=== PATIENT | female | born 1995 | race Caucasian/White ===

== ENCOUNTER 2016-05-01 08:41 | Day surgery (SDC) | payer OTHER ==
[~2016-05-01] VITALS: Ht 168.9 cm; Wt 69.9 kg
[~2016-05-01 08:41] MED LIST: BUPIVAC MPF-EPI 0.5%-1:200000 30 ML VIAL. ONE; CEFAZOLIN 2GM PREMIX 50 ML IV PRN; IOHEXOL 300 MG/ML 50 ML VIAL. ONE; SURGICEL HEMOSTAT 4X8 EACH. ONE
[2016-05-01] MEDS ORDERED: SEVOFLURANE 61 TO 120 MINUTES. IH ONE (08:45)
[2016-05-01] MEDS ORDERED: NEOSTIGMINE METHYLSULFATE 5 MG/5 ML SYRINGE. ONE (08:45)
[2016-05-01] MEDS ORDERED: FENTANYL PF 100 MCG/2 ML VIAL. ONE ×2 (08:45→10:27)
[2016-05-01] MEDS ORDERED: MIDAZOLAM HCL 2 MG/2 ML VIAL. ONE (08:45)
[2016-05-01] MEDS ORDERED: PROPOFOL 20 ML IV ONE (08:45)
[2016-05-01] MEDS ORDERED: DEXAMETHASONE SOD PHOS 20 MG/5 ML VIAL. ONE (08:45)
[2016-05-01] MEDS ORDERED: ROCURONIUM 50 MG/5 ML VIAL. ONE (08:45)
[2016-05-01] MEDS ORDERED: GLYCOPYRROLATE 1 MG/5 ML VIAL. ONE (08:45)
[2016-05-01] MEDS ORDERED: LIDOCAINE 2% 100 MG/5 ML DISP.SYRIN. ONE (08:46)
[2016-05-01] MEDS ORDERED: ONDANSETRON PF 4 MG/2 ML VIAL. ONE (08:46)
[2016-05-01] MEDS ORDERED: IV RINGERS,LACTATED 1000ML 1,000 ML IV SCH ×2 (09:30→10:59)
[2016-05-01] MEDS ORDERED: KETOROLAC 30 MG/ML SYRINGE FOR OR. INJ ONE (10:17)
--- NOTE | 2016-05-01 10:47 | RAD ---
Intraoperative cholangiogram, 05/01/2016: History: Cholecystectomy 4 spot films from surgery are presented for review. Contrast has been injected into the cystic duct remnant. 0.5 minutes of fluoroscopy time was utilized. Overlying surgical instruments obscure portions of the cystic duct and its insertion on the common bile duct. The mid and distal common bile duct are of normal caliber with no filling defects seen to suggest a retained calculus. There is good flow of contrast into the duodenum at the ampulla. There is reflux of contrast into a portion of the pancreatic duct. The incompletely opacified intrahepatic ducts are unremarkable. IMPRESSION: No significant abnormality is detected.
[2016-05-01] MEDS ORDERED: FENTANYL PF 100 MCG/2 ML VIAL. IV PRN (11:00)
[2016-05-01] MEDS ORDERED: ONDANSETRON PF 4 MG/2 ML VIAL. IV PRN (11:00)
[2016-05-01] MEDS ORDERED: HYDROMORPHONE 2 MG/ML VIAL. IV PRN (11:00)
[2016-05-01] MEDS ORDERED: LIDOCAINE 1% 1 ML SYRINGE. ID PRN (11:00)
[2016-05-01] MEDS ORDERED: MORPHINE SULFATE 2 MG/ML DISP.SYRIN. IV PRN (11:00)
[2016-05-01] MEDS ORDERED: PROCHLORPERAZINE 10 MG/2 ML VIAL. IV PRN (11:00)
[2016-05-01] MEDS: FENTANYL PF 100 MCG/2 ML VIAL. IV PRN ×2 (11:15→11:16)
[2016-05-01] MEDS ORDERED: OXYC-323 PO (11:18)
[2016-05-01] MEDS ORDERED: ONDA4TAB7 PO (11:18)
--- NOTE | 2016-05-01 11:19 | PDOC ---
BRIEF OPERATIVE NOTE Pre-Op Diagnosis cholelithiasis lap blanche, ioc k paul márquez ebl 20 ivf 600 kofi well to rr, stable. WADE STROUD MD May 01, 2016 11:19
[2016-05-01] MEDS ORDERED: OXYCODONE/APAP 5/325 TABLET. PO ONE (11:45)
[2016-05-01 11:53] LABS: NEG OBC UR NEG; POS OBC UR POS
[2016-05-01 12:35] VITALS: BP 119/76
--- NOTE | 2016-05-02 14:38 | PATHOLOGY ---
PATHOLOGY REPORT * * * * * * * * FINAL DIAGNOSIS: Gallbladder, laparoscopic cholecystectomy: - Cholelithiasis. - Cholesterolosis, focal. - Chronic cholecystitis. COMMENT: There is no evidence of malignancy. (JPM:; d/t: 05/02/16) REPORT ELECTRONICALLY SIGNED BY: Dashawn Tao M.D. DATE/TIME: 05/02/2016 14:38 * * * * * * * * GROSS PATHOLOGY: Received in formalin labeled "Sara Hoffmann, gallbladder and contents," is a 9.5 x 3.1 x 3.0 cm, intact gallbladder with pink-bowie purple serosal surfaces. Opening the gallbladder reveals a velvety, pink-harris mucosa and an average wall thickness of 0.1 cm. Calculi are present displaying a yellow and nodular appearance, and no masses are noted grossly. Station [employer]ice sections from the body and fundus are submitted along with the proximal margin in cassette A1. (CAA; 05/01/2016) INITIAL CPT CODE(S): A; 45696 Professional services performed by [email or web address] [address] Technical services performed by [email or web address] at [address] [place] [address]. SPECIMEN(S) RECEIVED: A.Gallbladder and contents CLINICAL HISTORY: Cholelithiasis PATIENT: SARA HOFFMANN /AGE: 1012/08/1995 (Age: 20) PATIENT #: [id number] ALT CASE #: SPECIMEN COLLECTION DATE: 05/01/2016 SPECIMEN RECEIVED DATE: 05/01/2016 [facility] - [id number] [place] [address] - PHONE: [phone] * * * END OF REPORT * * *
--- NOTE | 2016-05-02 20:25 | OP ---
DATE OF SURGERY: 05/01/2016 PREOPERATIVE DIAGNOSIS: Symptomatic cholelithiasis. POSTOPERATIVE DIAGNOSIS: Symptomatic cholelithiasis. PROCEDURE: Laparoscopic cholecystectomy with intraoperative cholangiogram. SURGEON: Wade Stroud M.D. ANESTHESIA: General. ESTIMATED BLOOD LOSS: 20 mL. IV FLUIDS: 600 mL. INDICATIONS: The patient is a 20-year-old female with symptomatic cholelithiasis. FINDINGS: Intraoperative cholangiogram is normal. DESCRIPTION OF PROCEDURE: After informed consent was obtained, the patient was taken to the operating room and placed in supine position. After adequate induction of general anesthesia, she was prepped and draped in usual sterile fashion. An umbilical skin incision was made with a scalpel. Subcutaneous tissue was spread with a hemostat. [facility] was used to grab the fascia and lift it anteriorly. Veress was used to gain access to the peritoneal cavity. Low opening pressures confirmed intraperitoneal placement of Veress. Pneumoperitoneum to 15 mmHg was established followed by placement of a 12 mm port. A 5 mm 30 degree lens was inserted, which revealed good port placement. No evidence of entry trauma. She was placed head up, rotated towards her left. Two additional ports were placed. There were 5 mm ports placed under direct vision after injecting the sites with local anesthetic, one was an epigastric and one was a 5 mm right lateral port. In addition, a small Alligator grasper was inserted through a separate stab wound in the right lateral abdomen after injecting the site with local anesthetic. The fundus of the gallbladder was retracted over liver and slightly towards the right and then infundibulum was retracted towards the right and towards her toes to open the triangle of Calot. The leading peritoneal edge was scored with cautery medially and laterally and carried back towards the liver. [place] dissector was then used to dissect out the triangle of Calot. At the completion of dissection, 2 structures were seen leading directly to the gallbladder, one was a cystic artery, one was a cystic duct. The liver could be seen behind the gallbladder. The gallbladder dissected away from the cystic plate. The gallbladder had no other tissue along the base of the gallbladder. There was no extraneous tissue within the triangle of Calot. Two clips were placed on cystic artery proximally, one distally and a clip was placed on cystic duct adjacent to the gallbladder. Ductotomy was made with scissors. Intraoperative cholangiogram was performed which showed free flow of contrast. The cystic duct, common bile duct, common hepatic, left and right hepatics, intrahepatic radicles, and free flow of contrast into the duodenum with no filling defects noted. The catheter was removed. Three clips were placed on cystic duct, distal ductotomy was completed with scissors. Cystic artery transected sharply. Gallbladder was removed from bed of liver with cautery and placed in laparoscopic bag and brought through the umbilical incision. The right upper quadrant was irrigated, the irrigant returned clear. There was no bleeding or bile leakage noted. Fascial closure device was used to close the fascia at the umbilical incision under direct laparoscopic vision, the camera had been placed in the epigastric port for closure of the umbilical fascia. The ports then removed under direct vision, they were hemostatic. Pneumoperitoneum was desufflated. Skin incisions were closed with 4-0 Monocryl in subcuticular fashion. Sterile dressings were placed. She tolerated the procedure well. There were no apparent complications. She was transferred in stable condition to recovery room. WADE STROUD MD DR: CELINE/pasha JOB#: [id number] / [id number] ARY Marquez APRN
== END 2016-05-01 12:47 | disposition home or self-care (01) ==
LOC: SURG 08:41
PROVIDERS: ATTEND Surgery
DX: K80.20 Calculus of gallbladder without cholecystitis without obstruction (principal); Z98.890 Other specified postprocedural states
CPT/HCPCS: 47563; 74300; 81025; C1782; J0690; J0780; J1100; J1885; J2250; J2405; J2704; J2710; J3010; J3490; J7030; J7120; Q9967; 88304